=== PATIENT | female | born 1995 | race Caucasian/White ===

== ENCOUNTER 2020-05-17 17:30 | Observation (INO) | payer OTHER, SELFPAY ==
[2020-05-17] VITALS (14 sets, daily range): BP systolic 96–139; BP diastolic 75–88; PULSE 77–83; RESP 15–18; TEMP 36.6–36.8; O2SAT 97–100; BMI 29.6
--- NOTE | ~2020-05-17 | CT_ITS ---
EXAMINATION: CT abdomen pelvis w con INDICATION: Abdominal pain and nausea TECHNIQUE: Computed tomographic images of the abdomen and pelvis were obtained after the administrati on of 100 cc of Omnipaque 350 intravenous contrast. The dose-length product (DLP) was 632.54 mGy-cm. Automated exposure control and iterative reconstruction technique were employed. COMPARISON: None available FINDINGS: The lung bases are clear. The heart size is normal. The liver, spleen, pancreas, gallbladde r, and adrenal glands are normal. The kidneys are unremarkable. No pathologically enlarged abdominal or pelvic lymph nodes are identified. There is no free intraperitoneal gas or evidence of bowel obstr uction. The appendix is located in the right pelvis and appears to measure up to 8 mm. IMPRESSION: 1. Findings suggestive of early acute appendicitis. Recommend correlation for right pelvic tenderness given the position of the appendix. Reviewed, dictated and finalized at location A. OLOGIC TECHNOLOGIST MAMMOGRAM IMPRESSION: 1. Findings suggestive of early acute appendicitis. Recommend correlation for r ight pelvic tenderness given the position of the appendix.
[2020-05-17 18:11] LABS: Basophils Absolute Auto 0.1 K/mm3 (0.0-0.1); Basophils Percent Auto 0.3 % (0.2-1.2); Eosinophils Percent Auto 0.1 % (0-4.4); Hematocrit 40.7 % (37.0-47.0); Hemoglobin 13.8 g/dL (12.0-15.0); Immature Granulocyte Absolute 0.09 K/mm3 (0.00-0.031); Immature Granulocyte Percent A 0.5 % (0-0.5); Lymphocytes Absolute Auto 1.05 K/mm3 (0.9-3.2); Lymphocytes Percent Auto 5.9 % (18.3-44.2); Mean Corpuscular HGB Conc 33.9 g/dl (32-36); Mean Corpuscular Hemoglobin 30.1 pg (26-34); Mean Corpuscular Volume 88.7 fl (80-100); Mean Platelet Volume 9.3 fl (7.4-10.4); Monocytes Absolute Auto 0.5 K/mm3 (0.1-0.6); Monocytes Percent Auto 2.6 % (2.6-8.5); Neutrophils Absolute Auto 16.1 K/mm3 (1.3-6.7); Neutrophils Percent Auto 90.6 % (45.5-73.1); Platelet Count Result 241 k/mm3 (150-375); Red Blood Count 4.59 M/mm3 (4.2-5.4); Red Cell Distribution Width 12.1 % (11.5-14.5); White Blood Count 17.8 K/mm3 (4.5-10.0)
[2020-05-17 18:15] LABS: Add Urine Microscopic? YES; Appearance Urine Clear (Clear); Bilirubin Urine Negative (Negative); Blood Urine Negative (Negative); Color Urine Yellow (Yellow); Glucose Urine UA Negative (Negative); Ketones Urine 1+ mg/dL (Negative); Leukocyte Esterase Ur Negative LEU/UL (Negative); Mucus Urine Few /lpf; Nitrate Urine Negative (Negative); Protein Urine 1+ mg/dL (Negative); RBC Urine 0-2 /hpf (0-2); Specific Grav Ur 1.027 (1.001-1.035); Squamous Epithelial Cell Urine Few /hpf (Few); Urobilinogen Urine Negative mg/dL (<2.0); WBC Urine 0-3 /hpf
[2020-05-17 18:24] LABS: Alanine Aminotransferase 14 U/L (4-35); Albumin Level 4.7 g/dL (3.5-5.1); Alkaline Phosphatase 50 U/L (38-126); Anion Gap 12 mmol/L (8-16); Aspartate Amino Transferase 24 U/L (14-36); Bilirubin,Total 0.8 mg/dL (0.2-1.3); Blood Urea Nitrogen 13 mg/dL (7-17); Calcium 9.4 mg/dL (8.4-10.2); Carbon Dioxide 25 mmol/L (22-30); Chloride 97 mmol/L (98-107); Estimated CRCL calculation 116 ml/min; Estimated Glomerular Filt Rate > 60; Glucose 117 mg/dL (65-105); Lipase 76 U/L (23-300); Potassium 3.9 mmol/L (3.4-5.0); Sodium 134 mmol/L (137-145)
[2020-05-17] MEDS: SODIUM CHLORIDE 0.9% IV 1,000 ML 999 ML IV CONT (18:44)
--- NOTE | 2020-05-17 18:45 | PC.NURSE ---
patient brought back to ED room 11 with c/o abdomen pain since 0900 today. see initial notes. patient has been in our waiting area due to no beds available in ED. no change in patient's condition since triage done. resting on stretcher. on monitor. SL inserted. patient updated on current treatment plan and expected wait time. call light in reach.
--- NOTE | 2020-05-17 18:48 | PC.NURSE ---
IVF started. patient has order for CT scan.
--- NOTE | 2020-05-17 19:19 | PC.NURSE ---
patient back from CT. waiting for further orders and test results.
--- NOTE | 2020-05-17 19:55 | PC.NURSE ---
patient ambulated to restroom and back to room. IVF continue. CT resulted. waiting for further orders from provider.
--- NOTE | 2020-05-17 20:06 | ED.ABDPAIN ---
HPI - Abdominal Pain General Chief Complaint: Abdominal Pain Stated Complaint: SEVERE STOMACH PAIN X8 HOURS Time Seen by Provider: 05/17/20 18:31 Source: patient Mode of arrival: ambulatory Limitations: no limitations History of Present Illness HPI narrative: 25 years old white female presents with lower abdominal pain started at 930 this morning. Like cramps, constant, worse with certain movements, nothing make it better. Associated with nausea. Patient denies any fever, chills, vomiting, radiation of pain, history of abdominal surgery, having similar symptoms. Last menstrual period 2 weeks ago, patient does not take medications at home. Patient does not smoke, drinks occasionally, uses marijuana. Related Data Allergies Allergy/AdvReac Type Severity Reaction Status Date / Time Penicillins Allergy HIVES Verified 11/28/10 09:15 Review of Systems Review of Systems: Narrative: CONSTITUTIONAL: Denies fever, chills, or sweats. EYES: Denies visual changes, redness, or discharge. ENT: Denies rhinorrhea, congestion, sore throat, or otalgia. CARDIOVASCULAR: Denies chest pain, palpitations, or edema. RESPIRATORY: Denies cough or dyspnea. GASTROINTESTINAL: Denies abdominal pain, nausea, vomiting, or diarrhea. GENITOURINARY: Denies dysuria or hematuria. SKIN: Denies rash or itching. MUSCULOSKELETAL: Denies back pain, joint pain, or myalgia. NEUROLOGIC: Denies headache, numbness, or weakness. PSYCHIATRIC: Denies anxiety or depression. PMFSH Social History Social History Gender identity (if verbalized by the patient): Female Exam Narrative: Exam Narrative: General appearance: Well-developed, well-nourished Skin: Normal color Head: Normocephalic, nontraumatic Eyes: Clear conjunctiva ENT: Oropharynx normal, ears normal, nose normal Neck: Supple, nontender Chest and respiratory: Airway patent, no respiratory distress, no accessory muscle use Heart: Regular rate/rhythm Abdomen: Soft, moderate tenderness right lower quadrant, positive guarding and rebound. No organomegaly, quiet bowel sounds Vascular: Normal peripheral pulses, normal capillary refill. Musculoskeletal: Normal range of motion, nontender back Neurologic: Alert and oriented ?3, HIDE AND SKIN CLASSER is normal as tested, no gross motor deficit Course Course Emergency Course: Improving Consultations Consultation #1: Dr. Gomez Date: 05/17/20 Time: 20:08 Vital Signs Vital signs: Vital Signs Temperature 36.8 C 05/17/20 17:57 Pulse Rate 83 05/17/20 17:57 Respiratory Rate 15 05/17/20 17:57 Blood Pressure 133/88 05/17/20 17:57 Pulse Oximetry 100 05/17/20 17:57 Temperature 36.8 C 05/17/20 17:57 Pulse Rate 83 05/17/20 17:57 Respiratory Rate 15 05/17/20 17:57 Blood Pressure 96/78 L 05/17/20 18:47 Pulse Oximetry 100 05/17/20 19:56 MDM - Abdominal Pain MDM Narrative Medical decision making narrative: Right lower quadrant pain. CT abdomen and pelvis with IV contrast, IV fluid, IV morphine, IV Zofran, labs, UA, test. Further plan to follow Differential Diagnosis Differential diagnosis: Likely abdominal pain, acute appendicitis, diverticulitis and pancreatitis Lab Data Result diagrams: 05/17/20 18:02 05/17/20 18:02 Labs: Lab Results 05/17/20 05/17/20 05/17/20 Range/Units 18:02 18:02 18:02 WBC 17.8 H (4.5-10.0) K/mm3 RBC 4.59 (4.2-5.4) M/mm3 Hgb 13.8 (12.0-15.0) g/dL Hct 40.7 (37.0-47.0) % MCV 88.7 (80-100) fl MCH 30.1 (26-34) pg MCHC 33.9 (32-36) g/dl RDW 12.1 (11.5-14.5) % Plt Count 241 (150-375) k/mm3 MPV 9.3 (7.4-10.4) fl
[2020-05-17] MEDS: ONDANSETRON INJ 4 MG/2 ML VIAL IV PUSH (20:21)
[2020-05-17] MEDS: metroNIDAZOLE 500 MG/ISO 100ML 500 MG/100 ML BAG 100 MG IVPB (20:21)
[2020-05-17] MEDS: MORPHINE SULFATE (*CRX) 4 MG/ML INJ IV PUSH (20:21)
[2020-05-17] MEDS: CIPROFLOXACIN 400 MG/D5W 200ML 200 ML 200 MG IVPB (20:21)
--- NOTE | 2020-05-17 20:34 | PC.NURSE ---
patient medicated as ordered. patient updated on current diagnosis and treatment plan. verbalized understanding. drinking water at bedside. placed on BP and O2 monitors. waiting for bed assignment upstairs. has cell phone and call light in reach.
--- NOTE | 2020-05-17 20:48 | PC.NURSE ---
patient assigned to room 261. SBAR completed and faxed and tubed.
--- NOTE | 2020-05-17 21:06 | PC.NURSE ---
attempted to call report. left on hold.
[2020-05-17] MEDS: HYDROmorphone HCL INJ (*CRX) 1 MG/ML SYR 0.5 MG IV PUSH ×2 (21:10→22:58)
--- NOTE | 2020-05-17 21:28 | ADMGEN ---
This patient, Shivani Keys, was admitted to Medical Room 261-01. Patient/family oriented to hospital policies and general routines including ID bracelet, bed and alarms, visiting hours, pain management, procedures, bathroom and other care routines, personal items, smoking policy, room service/diet, and visiting hours. Information on how to activate the Rapid Response Team has been discussed. Patient/Family are encouraged to report perceived risks to care and to ask questions if they do not understand what they are told or what they should do.
[2020-05-17] MEDS: SODIUM CHLORIDE 0.9% IV 1,000 ML 150 ML IV CONT (22:39)
[2020-05-17] MEDS: QUEtiapine FUMARATE 25 MG TABLET PO (23:15)
[2020-05-18] VITALS (21 sets, daily range): BP systolic 108–157; BP diastolic 49–98; PULSE 67–110; RESP 12–20; TEMP 36.1–37.9; O2SAT 97–100
[2020-05-18] MEDS: HYDROmorphone HCL INJ (*CRX) 1 MG/ML SYR 0.5 MG IV PUSH ×5 (01:58→21:28)
--- NOTE | 2020-05-18 03:29 | PHAR ---
norgestimate-ethiyl estradiol- VERIFIED IN PHARMACY AND SENT BACK TO FLOOR @ 03:30. NO OUTER SLEEVE W/ PHARMACY DIRECTIONS, BUT STANDARD CONTROL. (DAP)
[2020-05-18] MEDS: SODIUM CHLORIDE 0.9% IV 1,000 ML 150 ML IV CONT ×2 (05:05→13:47)
[2020-05-18] MEDS: metroNIDAZOLE 500 MG/ISO 100ML 500 MG/100 ML BAG 100 MG IVPB ×2 (05:06→13:47)
[2020-05-18 05:39] LABS: Basophils Absolute Auto 0.1 K/mm3 (0.0-0.1); Basophils Percent Auto 0.4 % (0.2-1.2); Eosinophils Absolute Auto 0.1 K/mm3 (0-0.3); Eosinophils Percent Auto 0.5 % (0-4.4); Hematocrit 34.3 % (37.0-47.0); Hemoglobin 11.8 g/dL (12.0-15.0); Immature Granulocyte Absolute 0.06 K/mm3 (0.00-0.031); Immature Granulocyte Percent A 0.5 % (0-0.5); Lymphocytes Absolute Auto 2.25 K/mm3 (0.9-3.2); Lymphocytes Percent Auto 19.4 % (18.3-44.2); Mean Corpuscular HGB Conc 34.4 g/dl (32-36); Mean Corpuscular Hemoglobin 30.3 pg (26-34); Mean Corpuscular Volume 88.2 fl (80-100); Mean Platelet Volume 9.4 fl (7.4-10.4); Monocytes Absolute Auto 0.8 K/mm3 (0.1-0.6); Monocytes Percent Auto 6.9 % (2.6-8.5); Neutrophils Absolute Auto 8.4 K/mm3 (1.3-6.7); Neutrophils Percent Auto 72.3 % (45.5-73.1); Platelet Count Result 204 k/mm3 (150-375); Red Blood Count 3.89 M/mm3 (4.2-5.4); Red Cell Distribution Width 12.1 % (11.5-14.5); White Blood Count 11.6 K/mm3 (4.5-10.0)
[2020-05-18 06:07] LABS: Alanine Aminotransferase 9 U/L (4-35); Albumin Level 3.6 g/dL (3.5-5.1); Alkaline Phosphatase 37 U/L (38-126); Anion Gap 6 mmol/L (8-16); Aspartate Amino Transferase 17 U/L (14-36); Bilirubin,Total 0.7 mg/dL (0.2-1.3); Blood Urea Nitrogen 6 mg/dL (7-17); Calcium 8.4 mg/dL (8.4-10.2); Carbon Dioxide 25 mmol/L (22-30); Chloride 105 mmol/L (98-107); Estimated CRCL calculation 159 ml/min; Estimated Glomerular Filt Rate > 60; Glucose 103 mg/dL (65-105); Magnesium 1.7 mg/dL (1.6-2.3); Potassium 3.8 mmol/L (3.4-5.0); Sodium 136 mmol/L (137-145)
[2020-05-18] MEDS: CIPROFLOXACIN 400 MG/D5W 200ML 200 ML 200 MG IVPB (09:02)
--- NOTE | 2020-05-18 11:42 | PM.IMHP ---
H&P: HPI History of Present Illness Date/Time: 05/18/20 11:42 Chief Complaint: Lower abdominal pain Narrative: Shivani Keys is a 25 year old white female who presentedlast night to the [place] ED with lower abdominal pain started at 930 in the AM/ morning. The was described to be like cramps, then constant ache, worsening with certain movements, nothing made it better. Some associated nausea but no vomiting. Patient denies any fever, chills, vomiting, radiation of pain, history of abdominal surgery, having similar symptoms. Last menstrual period 2 weeks ago, patient does not take medications at home. Patient does not smoke, drinks occasionally, uses marijuana. Review of Systems Constitutional: Constitutional: Reports as per HPI and Denies headache(s) Eyes: Eyes: Denies loss of vision and Denies eye pain ENT: Reports Normal hearing present, Denies change in voice, Denies dizziness and Denies headache(s) Cardiovascular: Cardiovascular: Denies chest pain and Denies dyspnea Respiratory: Respiratory: Denies dyspnea and Denies wheezing Gastrointestinal: Gastrointestinal: Reports abdominal pain ( mainly lower abdomen below the umbilicus.), Reports constipation (X 2 days), Reports nausea and Denies vomiting Genitourinary: Comments: normal. Recently the last 1 2 weeks ago. Reportedly negative urine test in the ED last night. She reports no specific female genitall tract problems other than some abnormal cells on her Pap smears in the past requiring some cautery to this cervix. She has had the HPV virus vaccine. She has not had significant problems with endometriosis or ovarian cyst in the past. Musculoskeletal: Musculoskeletal: Denies back pain and Denies arthralgias Neurologic: Reports Normal hearing present, Denies dizziness, Denies headache(s), Denies loss of vision and Denies memory loss Psychiatric: Psychiatric: Denies memory loss and Denies panic attacks Endocrine: Endocrine: Reports no additional endocrine complaints Hematologic/Lymphatic: Hematologic/Lymphatic: Reports no additional hematologic/lymphatic complaints Allergic/Immunologic: Allergic/Immunologic: Denies wheezing PMFSH Past Medical History Medical History (Updated 05/18/20 @ 12:01 by Ryley Gomez MD) Overweight (BMI 25.0-29.9) Family History Family History Father Diabetes mellitus Social History Social History Smoking status: Never smoker Alcohol intake: current Drinks per week: 2 Substance use: current Substance use type: marijuana Last use: 05/16 Gender identity (if verbalized by the patient): Female Spiritual care concerns: No Meds Home Medications and Allergies Home Medications Medication Instructions Recorded Confirmed Type alprazolam 0.5 mg PO BID PRN 05/17/20 05/17/20 History norgestimate-ethinyl estradiol 1 tablet PO DAILY 05/17/20 05/17/20 History [Tri-Sprintec ()] quetiapine 25 mg PO HS 05/17/20 05/17/20 History Allergies Allergy/AdvReac Type Severity Reaction Status Date / Time Penicillins Allergy HIVES Verified 05/17/20 23:28 Vital Signs Vital Signs - 24 hr 05/17/20 17:57 05/17/20 18:40 05/17/20 18:45 Temperature 36.8 C Pulse Rate 83 Respiratory Rate 15 Blood Pressure 133/88 Pulse Oximetry 100 99 99 05/17/20 18:47 05/17/20 19:26 05/17/20 19:36 Temperature Pulse Rate Respiratory Rate Blood Pressure 96/78 L Pulse Oximetry 100 100 100 05/17/20 19:56 05/17/20 20:00 05/17/20 20:18 Temperature Pulse Rate Respiratory Rate Blood Pressure Pulse Oximetry 100 100 100 05/17/20 20:30 05/17/20 20:31 05/17/20 20:32 Temperature Pulse Rate Respiratory Rate Blood Pressure 139/88 Pulse Oximetry 97 100 99 05/17/20 20:50 05/17/20 21:30 05/18/20 00:00 Temperature 36.6 C 36.6 C Pulse Rate 77 67 Resp
--- NOTE | 2020-05-18 12:30 | WPDANESEPP ---
Anes - Eval Pre Procedure Procedure: Operation Date: 05/18/20 15:30 Proposed Procedures p Laparoscopic Appendectomy - Ryley Gomez MD Date/Time: 05/18/20 12:30 Pre Op Diagnosis: APPENDICITIS Patient Data Age: 25 Gender: F Height: 5 ft 7 in Weight: 85.8 kg Last Vital Signs Temp 98.5 F 05/18/20 10:20 Pulse 70 05/18/20 10:20 Resp 18 05/18/20 10:20 BP 114/78 05/18/20 10:20 Pulse Ox 99 05/18/20 12:13 Allergies Allergy/AdvReac Type Severity Reaction Status Date / Time Penicillins Allergy HIVES Verified 05/17/20 23:28 Home Medications Medication Instructions Recorded Confirmed Type alprazolam 0.5 mg PO BID PRN 05/17/20 05/17/20 History norgestimate-ethinyl estradiol 1 tablet PO DAILY 05/17/20 05/17/20 History [Tri-Sprintec (26)] quetiapine 25 mg PO HS 05/17/20 05/17/20 History Laboratory Tests 05/17/20 05/17/20 05/17/20 18:02 18:02 18:02 WBC 17.8 K/mm3 H K/mm3 (4.5-10.0) RBC 4.59 M/mm3 M/mm3 (4.2-5.4) Hgb 13.8 g/dL g/dL (12.0-15.0) Hct 40.7 % % (37.0-47.0) MCV 88.7 fl fl (80-100) MCH 30.1 pg pg (26-34) MCHC 33.9 g/dl g/dl (32-36) RDW 12.1 % % (11.5-14.5) Plt Count 241 k/mm3 k/mm3 (150-375) MPV 9.3 fl fl (7.4-10.4) Immature Gran % (Auto) 0.5 % % (0-0.5) Neut % (Auto) 90.6 % H % (45.5-73.1) Lymph % (Auto) 5.9 % L % (18.3-44.2) [place] % (Auto) 2.6 % % (2.6-8.5) Eos % (Auto) 0.1 % % (0-4.4) Baso % (Auto) 0.3 % % (0.2-1.2) Lymph # (Auto) 1.05 K/mm3 K/mm3 (0.9-3.2) [place] # (Auto) 0.5 K/mm3 K/mm3 (0.1-0.6) Eos # (Auto) 0.0 K/mm3 K/mm3 (0-0.3) Baso # (Auto) 0.1 K/mm3 K/mm3 (0.0-0.1) Abs Immat Gran (auto) 0.09 K/mm3 H K/mm3 (0.00-0.031) Absolute Neuts (auto) 16.1 K/mm3 H K/mm3 (1.3-6.7) Absolute Nucleated RBC 0.0 K/mm3 K/mm3 (0.0-0.012) Nucleated RBC % 0.0 % % (0.0-0.2) Sodium 134 mmol/L L mmol/L (137-145) Potassium 3.9 mmol/L mmol/L (3.4-5.0) Chloride 97 mmol/L L mmol/L (98-107) Carbon Dioxide 25 mmol/L mmol/L (22-30) Anion Gap 12 mmol/L mmol/L (8-16) BUN 13 mg/dL mg/dL (7-17) Creatinine 0.60 mg/dL L mg/dL (0.7-1.0) Estim Creat Clear Calc 116 ml/min ml/min Estimated GFR > 60 (59 - ) Glucose 117 mg/dL H mg/dL (65-105) Calcium 9.4 mg/dL mg/dL (8.4-10.2) Magnesium Total Bilirubin 0.8 mg/dL mg/dL (0.2-1.3) AST 24 U/L U/L (14-36) ALT 14 U/L U/L (4-35) Alkaline Phosphatase 50 U/L U/L (38-126) Total Protein 8.0 g/dL g/dL (6.3-8.2) Albumin 4.7 g/dL g/dL (3.5-5.1) Lipase 76 U/L U/L (23-300) Urine Color Yellow (Yellow) Urine Appearance Clear (Clear) Urine pH 6.0 (5.0-9.0) Ur Specific [place] 1.027 (1.001-1.035) Urine Protein 1+ mg/dL H mg/dL (Negative) Urine Glucose (UA) Negative mg/dL mg/dL (Negative) Urine Ketones 1+ mg/dL H mg/dL (Negative) Ur Blood (Man) Negative (Negative) Urine Nitrate Negative (Negative) Urine Bilirubin Negative (Negative) Urine Urobilinogen Negative mg/dL mg/dL (<2.0) Leukocyte Esterase Rfl Negative LISA/UL LISA/UL (Negative) Urine RBC 0-2 /hpf /hpf (0-2) Urine WBC 0-3 /hpf /hpf Ur Squamous Epith Cells Few /hpf /hpf (Few) Urine Mucus Few /lpf H /lpf 05/18/20 05/18/20 05:13 05:13 WBC 11.6 K/mm3 H K/mm3 (4.5-10.0) RBC 3.89 M/mm3 L M/mm3 (4.2-5.4) Hgb 11.8 g/dL L g/dL (12.0-15.0) Hct 34.3 % L % (37.0-47.0) MCV 88.2 fl fl (80-100)
--- NOTE | 2020-05-18 13:31 | WPDHPUPDATE1 ---
History and Physical Update Update Date/Time: 05/18/20 13:31 History and Physical has been reviewed, including an updated exam of the patient. There are NO changes in the patient's condition. Risks, benefits, and alternatives have been discussed and questions answered. Patient agrees to proceed with procedure.
[2020-05-18] MEDS: ONDANSETRON INJ 4 MG/2 ML VIAL IV PUSH ×4 (13:48→20:18)
--- NOTE | 2020-05-18 14:30 | PC.NURSE ---
Patient to OR per bed.
[2020-05-18] MEDS: LACTATED RINGERS 1,000 ML 30 ML IV CONT ×2 (14:45→16:19)
[2020-05-18] MEDS: BUPIVACAINE HCL 0.5% PF 30 ML VIAL INFILTRATE (15:48)
--- NOTE | 2020-05-18 16:24 | PM.PROC ---
Procedure Note - Detailed Date of procedure: 05/18/20 Pre-op diagnosis: APPENDICITIS Acute uncomplicated appendicitis Post-op diagnosis: same Procedure performed: Laparoscopic Appendectomy Description of procedure: The patient was seen again in the Holding Room. The risks, benefits, complications, treatment options, and expected outcomes were discussed with the patient and/or family. The possibilities of reaction to medication, pulmonary aspiration, perforation of viscus, bleeding, recurrent infection, finding a normal appendix, the need for additional procedures, failure to diagnose a condition, and creating a complication requiring transfusion or operation were discussed. There was concurrence with the proposed plan and informed consent was obtained. The site of surgery was properly noted/marked. The patient was taken to Operating Room, and a time out was preformed which identified this as the proper patient, and the procedure verified as laparoscopic appendectomy, possible open. The patient was placed in the supine position and general anesthesia was induced, along with placement of orogastric tube, SCD hose, and a Dunaway catheter. The abdomen was prepped and draped in a sterile fashion. A 5 mm umbilical incision was made and the peritoneal cavity was accessed using the Veress needle technique. Once the abdomen was insufflated to 14 mmHg pressure a 5 mm XL trocar over the 0? 5 mm scope was carefully twisted into the abdomen via the umbilicus. The pneumoperitoneum was then established to steady pressure of 14 mm Hg. A 12 mm laparoscopic port was placed through a transverse suprapubic incision. An additional 5 mm cannula was then placed in the left lower quadrant of the abdomen at a level half way between the umbilicus and pubic symphysis under direct vision. A careful evaluation of the entire abdomen was carried out. There appeared to be some slightly cloudy serous fluid in the pelvis. The tip of the appendix was extending down into the pelvis and was stuck to the right tube. The patient was placed in Trendelenburg and left lateral decubitus position. The small intestines were retracted in the cephalad and left lateral direction away from the pelvis and right lower quadrant. The patient was found to have an enlarged and inflamed appendix that was extending [into the right side of the pelvis. There was no evidence of perforation. The appendix was carefully dissected. Once it was free a 45 mm ethicon endogastroentestinal stapler with a vascular load was placed across the mesoappendix. This was fired and hemostasis was checked along the staple line and appeared to be adequate. One small area of rapid pulsatile bleeding was identified and touched with Bovie cautery along the staple line and this stopped it. For this patient, this divided the entire mesoappendix and we were able to proceed immediately to stapling off the appendix at it's junction with the cecum. The appendix was then divided at its base using the same 45 mm stapler with a 3.5 mm bowel wall load. Minimal appendiceal stump was left in place. There was no evidence of bleeding, leakage, or complication after division of the appendix at its junction with the cecum. The appendix was then placed in an endobag which had been brought through the 12 mm suprapubic port site. The appendix and the bag were then extracted through this larger port site in the suprapubic position. The suprapubic port site was closed using a #1 Polysorb suture passed with a Roe-Smith cone and needle suture passer at the level of the fascia. The trocar site skin wounds were closed using 4-0 undyed Monocryl and surgical glue. Instrument, sponge, and needle counts were correct at the conclusion of the case. Implants: none Anesthesia: GETA Surgeon: Ryley Gomez MD Jewelry Designer: GALLO Hernandes, OR 1st assist Estimated blood loss (mL): 15 Packing: No Pathology: yes (Appendix) Complications: No immediate complicati
[2020-05-18] MEDS: fentaNYL CITRATE INJ (*CRX) 100 MCG/2 ML VIAL 25 MCG IV PUSH ×4 (16:53→17:20)
[2020-05-18] MEDS: HYDROmorphone HCL INJ (*CRX) 1 MG/ML SYR 0.25 MG IV PUSH ×4 (17:37→17:52)
--- NOTE | 2020-05-18 18:22 | PC.NURSE ---
Patient return from OR.
[2020-05-18] MEDS: SENNA/DOCUSATE SODIUM TABLET 2 TAB PO (21:29)
[2020-05-18] MEDS: QUEtiapine FUMARATE 25 MG TABLET PO (22:30)
[2020-05-19] MEDS: ONDANSETRON INJ 4 MG/2 ML VIAL IV PUSH (00:13)
[2020-05-19] MEDS: HYDROcodone/acetaminophen (*CRX) 7.5-325 MG TABLET 1 TAB PO ×3 (00:17→12:20)
[2020-05-19] MEDS: SODIUM CHLORIDE 0.9% IV 1,000 ML 150 ML IV CONT ×2 (01:41→08:44)
[2020-05-19 03:56] VITALS: BP 116/71; PULSE 63; RESP 16; TEMP 36.6; O2SAT 100
[2020-05-19 04:00] VITALS: BP 116/71; PULSE 63; RESP 16; TEMP 36.6; O2SAT 100
[2020-05-19 05:52] LABS: Hematocrit 29.2 % (37.0-47.0); Hemoglobin 9.9 g/dL (12.0-15.0); Mean Corpuscular HGB Conc 33.9 g/dl (32-36); Mean Corpuscular Hemoglobin 30.1 pg (26-34); Mean Corpuscular Volume 88.8 fl (80-100); Mean Platelet Volume 9.6 fl (7.4-10.4); Platelet Count Result 174 k/mm3 (150-375); Red Blood Count 3.29 M/mm3 (4.2-5.4); Red Cell Distribution Width 12.1 % (11.5-14.5)
[2020-05-19 06:16] LABS: Anion Gap 3 mmol/L (8-16); Blood Urea Nitrogen 3 mg/dL (7-17); Calcium 7.9 mg/dL (8.4-10.2); Carbon Dioxide 26 mmol/L (22-30); Chloride 105 mmol/L (98-107); Estimated CRCL calculation 135 ml/min; Estimated Glomerular Filt Rate > 60; Glucose 100 mg/dL (65-105); Potassium 3.9 mmol/L (3.4-5.0); Sodium 134 mmol/L (137-145)
[2020-05-19 08:45] VITALS: RESP 16; O2SAT 100
[2020-05-19 10:00] VITALS: BP 110/55; PULSE 74; RESP 16; TEMP 37.1; O2SAT 100
--- NOTE | 2020-05-19 11:20 | PM.DS ---
DS: Admitting Diagnosis Admitting Diagnosis Admitting Diagnosis: Acute uncomplicated appendicitis DS: Discharge Diagnosis Discharge Diagnosis (1) Acute appendicitis: Onset Date: ~05/17/20 Qualifiers: Acute appendicitis type: unspecified acute appendicitis type Qualified Code(s): K35.80 - Unspecified acute appendicitis Code(s): K35.80 - Unspecified acute appendicitis Status: Acute (2) Marijuana abuse: Code(s): F12.10 - Cannabis abuse, uncomplicated Status: Acute (3) Overweight (BMI 25.0-29.9): Code(s): E66.3 - Overweight Status: Acute DS: Summary Hospital Course Reason for hospitalization: Shivani Keys is a 25 year old white female who presented to [place] ED with lower abdominal pain starting that same morning. Some associated nausea but no vomiting. CT scan of the abdomen and pelvis showed possible acute early appendicitis. Labs revealed leukocytosis. Her exam correlated with the findings on the CT scan. The patient was admitted to our service in the setting of acute appendicitis. Hospital Course: She was taken for urgent laparoscopic appendectomy by Dr. Gomez on 05/18/20. Intraoperative findings showed acute appendicitis without perforation or abscess. No immediate complications. She was transferred to the medical floor. She initially had some nausea last night after surgery, but no vomiting. This morning she was advanced on her diet to now a regular diet, which she will eat for lunch. Today, she denies any nausea or vomiting. She is complaining mostly of abdominal pain at the incisions without much relief of the hydrocodone alone. She is also complaining of gas pains that radiate into her shoulder and back. No other complaints. Tolerating her diet and activity. Voiding without difficulty. Labs repeated this morning and showed a normal WBC. Without evidence of perforation, she will be sent home with no antibiotics following surgery. She is stable for discharge today and will be sent home with analgesics, which I discussed the use and new medications with her in detail. Also discussed d/c instructions. Answered all questions. Status at Discharge Functional status at discharge: independent ambulation Overall status at discharge: patient is progressing back to baseline Time Spent with Patient Time attestation: Total time spent providing and/or coordinating discharge services: Time spent: Greater than 30 minutes Exam Const: General: comfortable, no acute distress, alert and awake Orientation/consciousness: patient oriented x3 Resp: Effort & Inspection: normal respiratory effort Auscultation: clear to auscultation bilaterally Cardio: Rate: regular rate Rhythm: regular rhythm GI: Inspection: non-distended and incision (Abdominal incisions clean and dry, glue intact.) GI Palp: Yes Soft to palpation, Yes Tenderness to palpation present (GI) (incisional), No Guarding due to palpation present (GI) and No Rebound tenderness present Auscultation: Hypoactive bowel sounds present Rectal Exam: deferred Skin: General skin exam: normal color Rashes: no rashes Neuro: General: patient oriented x3, moves all extremities and no focal motor deficits Cranial nerves: Yes CN's II-XII intact bilaterally Speech: normal speech and No Abnormal speech present Extrem: General: normal to inspection, no clubbing, cyanosis or edema and no calf tenderness Psych: Mental Status: mental status grossly normal Attitude: cooperative Thought process: Normal thought process present Thought content: Yes Normal thought content present Insight: Good insight present (Psych) Judgement: Good judgement present (Psych) DS: Data Data Completed and Pending Completed studies during hospitalization: Procedures Operation Date: 05/18/20 15:30 Actual Procedures Side Surgeon p Laparoscopic Appendectomy Ryley Gomez MD Pending studies at discharge: Pending at discharge 05/18/20 15:45 Surgical [PTH] Routi
[2020-05-19] MEDS: SIMETHICONE 80 MG TAB.CHEW PO ×2 (12:18→16:39)
[2020-05-19 14:00] VITALS: BP 132/75; PULSE 72; RESP 16; TEMP 36.8; O2SAT 100
== END 2020-05-19 17:30 | disposition home or self-care (01) ==
LOC: ANH2MED 05-19 13:50 → ANHED 05-19 15:21
PROVIDERS: Emergency Medicine; Admitting Provider Surgery; Emergency Provider Emergency Medicine; PCP Family Medicine Adolescent Medicine; Visit Provider Surgery
PROC: 0DTJ4ZZ Resection of Appendix, Percutaneous Endoscopic Approach (ICD-10-PCS; CPT 44970; principal; 2020-05-18 15:30)
DX: K35.32 Acute appendicitis with perforation, localized peritonitis, and gangrene, without abscess (principal); F12.90 Cannabis use, unspecified, uncomplicated
CPT/HCPCS: 44970; 36415; 74177; 80048; 80053; 81001; 81025; 83690; 83735; 85025; 85027; 88304; 96361; 96365; 96367; 96374; 96375; 96376; 99285; A9270; G0378; J0131; J0330; J0744; J1100; J1170; J2250; J2270; J2405; J2704; J2710; J3010; J7030; J7120; Q9967

== ENCOUNTER → 2021-01-31 02:36 | Outpatient (CLI) | payer OTHER, SELFPAY ==
[2021-01-31 20:47] LABS: SARS-CoV-2 RNA PCR Negative
== END ==
PROVIDERS: PCP Family Medicine Adolescent Medicine; Visit Provider Internal Medicine Gastroenterology
DX: Z01.812 Encounter for preprocedural laboratory examination (principal); Z20.822 Contact with and (suspected) exposure to COVID-19
CPT/HCPCS: C9803; U0003; U0005

== ENCOUNTER 2021-02-03 01:56 | Day surgery (SDC) | payer OTHER, SELFPAY ==
[2021-01-24 13:15] VITALS: BMI 28.3
--- NOTE | 2021-02-02 12:18 | PM.HPGS ---
History of Present Illness History of Present Illness Consent: Risks, benefits, and alternatives have been discussed and questions answered. Patient agrees to proceed with procedure. Chief complaint: lower abdominal pain, nausea Narrative: Shivani Keys is a 26 year old female with symptoms of persistent abdominal pain accompanied by constipation. She is also having recurrent episodes of nausea and vomiting unrelieved by taking pantoprazole. recently she had burning type discomfort that radiated up to her neck. She has been taking metoclopramide for the last few days this seems to be helping significantly Review of Systems Review of Systems: All systems reviewed & are unremarkable except as noted in HPI and below PMFSH Past Medical History Medical History Acute appendicitis (~05/17/20) Anxiety Marijuana abuse Nausea and vomiting Overweight (BMI 25.0-29.9) Scoliosis Smoker Surgical History Surgical History S/P laparoscopic appendectomy Family History Family History Father Diabetes mellitus Social History Social History Smoking status: Never smoker Alcohol intake: current Drinks per week: 10 Substance use: current Substance use type: marijuana Other substance usage details: daily Last use: 05/16 Living arrangements: with family Gender identity (if verbalized by the patient): Female Spiritual care concerns: No Meds Home Medications and Allergies Home Medications Medication Instructions Recorded Confirmed Type alprazolam 0.5 mg PO BID PRN 05/17/20 01/24/21 History norgestimate-ethinyl estradiol 1 tablet PO DAILY 05/17/20 01/24/21 History [Tri-Sprintec (26)] quetiapine 25 mg PO HS 05/17/20 01/24/21 History metoclopramide HCl 10 mg PO BID 01/24/21 01/24/21 History Allergies Allergy/AdvReac Type Severity Reaction Status Date / Time Penicillins Allergy HIVES Verified 02/03/21 07:46 Exam Const: General: alert Orientation/consciousness: patient oriented x3 Resp: Auscultation: clear to auscultation bilaterally Cardio: Rhythm: regular rhythm GI: GI Palp: Yes Soft to palpation and No Tenderness to palpation present (GI) Neuro: General: patient oriented x3 Assessment and Plan Assessment and plan (1) Nausea and vomiting: Code(s): R11.2 - Nausea with vomiting, unspecified Status: Acute Assessment and Plan: EGD with possible biopsy or dilatation or cautery. (2) Constipation: Code(s): K59.00 - Constipation, unspecified Status: Acute Assessment and Plan: Colonoscopy with possible biopsy or polypectomy or cautery or injection of substances.
[2021-02-03 07:47] VITALS: BP 120/88; PULSE 115; RESP 18; TEMP 36.8; O2SAT 99; BMI 26.6
[2021-02-03] MEDS: LACTATED RINGERS 1,000 ML 150 ML IV CONT (07:59)
--- NOTE | 2021-02-03 08:12 | WPDANESEPPF ---
Anes - Initial Pre Proc Eval Procedure: Operation Date: 02/03/21 08:30 Proposed Procedures p Esophagogastroduodenoscopy & Colonoscopy - Tawanda Armstrong MD Date/Time: 02/03/21 08:12 Surgeon: Tawanda Armstrong MD Pre Op Diagnosis: lower abdominal pain, nausea Patient Data Age: 26 Gender: F Height: 1.7 m Weight: 77 kg Last Vital Signs Temp 98.2 F 02/03/21 07:47 Pulse 115 H 02/03/21 07:47 Resp 18 02/03/21 07:47 BP 120/88 02/03/21 07:47 Pulse Ox 99 02/03/21 07:47 Allergies Allergy/AdvReac Type Severity Reaction Status Date / Time Penicillins Allergy HIVES Verified 02/03/21 07:46 Home Medications Medication Instructions Recorded Confirmed Type alprazolam 0.5 mg PO BID PRN 05/17/20 01/24/21 History norgestimate-ethinyl estradiol 1 tablet PO DAILY 05/17/20 01/24/21 History [Tri-Sprintec (26)] quetiapine 25 mg PO HS 05/17/20 01/24/21 History metoclopramide HCl 10 mg PO BID 01/24/21 01/24/21 History Patient hx anesthesia problems: none Family hx anesthesia problems: none PMFSH Past Medical History Medical History Acute appendicitis (~05/17/20) Anxiety Marijuana abuse Nausea and vomiting Overweight (BMI 25.0-29.9) Scoliosis Smoker Surgical History Surgical History S/P laparoscopic appendectomy Family History Family History Father Diabetes mellitus Social History Social History Smoking status: Never smoker Alcohol intake: current Drinks per week: 10 Substance use: current Substance use type: marijuana Other substance usage details: daily Last use: 05/16 Living arrangements: with family Gender identity (if verbalized by the patient): Female Spiritual care concerns: No Anes - Eval Final PreProcedure Day of Procedure 02/03/21 08:12 Patient weight: normal Heart: regular rate and rhythm Airway: Mallampati scale class II Neurological: alert and oriented Last oral intake: >/= 8 hours ASA classification: II Emergent: no Anesthetic plan: proceed Anesthesia type and monitoring: general GIVS and standard monitoring Informed Consent: The patient's anesthetic plan and its attendant risks and benefits were discussed with the patient/family/POA. Questions were solicited and answers provided to the satisfaction of the patient/family/POA.
[2021-02-03 09:04] VITALS: BP 127/73; PULSE 79; RESP 18; O2SAT 100
--- NOTE | 2021-02-03 09:05 | SUR.OPER ---
EGD START 844, END 847 COLONOSCOPY START 853, END 901
[2021-02-03 09:14] VITALS: BP 117/85; PULSE 79; RESP 20; O2SAT 100
[2021-02-03 09:24] VITALS: BP 135/85; PULSE 66; RESP 29; O2SAT 100
== END 2021-02-03 09:30 | disposition home or self-care (01) ==
PROVIDERS: PCP Family Medicine Adolescent Medicine; Visit Provider Internal Medicine Gastroenterology
PROC: 0DJ08ZZ Inspection of Upper Intestinal Tract, Via Natural or Artificial Opening Endoscopic (ICD-10-PCS; CPT 43235; principal; 2021-02-03 08:30)
DX: R11.2 Nausea with vomiting, unspecified (principal); K59.00 Constipation, unspecified; K21.9 Gastro-esophageal reflux disease without esophagitis; F12.90 Cannabis use, unspecified, uncomplicated; F41.9 Anxiety disorder, unspecified
CPT/HCPCS: 45378; 43239; 87081; 88305; C9803; J2704; J7120; U0003; U0005